=== PATIENT | male | born 1960 | race Caucasian/White ===

== ENCOUNTER 2025-07-13 13:53 | Outpatient (CLI) | payer BC | END 2025-07-13 13:54 | disposition home or self-care (01) | LOC: CSHMRI 13:53 | PROVIDERS: ATTEND Orthopaedic Surgery | DX: M25.511 Pain in right shoulder (principal); M75.91 Shoulder lesion, unspecified, right shoulder; M75.111 Incomplete rotator cuff tear or rupture of right shoulder, not specified as traumatic; S46.111A Strain of muscle, fascia and tendon of long head of biceps, right arm, initial encounter; M19.011 Primary osteoarthritis, right shoulder ==